=== PATIENT | female | born 1975 | race American Indian/Alaskan Native ===

== ENCOUNTER → 2017-04-30 | Outpatient (CLI) | payer BC ==
--- NOTE | 2017-05-01 08:11 | MAMMOGRAPHY REPORT ---
SCREENING ULTRASOUND OF BOTH BREASTS: 04/30/2017 CLINICAL HISTORY: 42-year-old woman presents for breast screening. She is declining mammography as a rticles she has read reportedly raised a concern of mammograms causing breast cancer. Therefore she presents for whole breast screening ultrasound. COMPARISON: No prior exams were available for comparison. FINDINGS: Real-time high-resolution sonographic evaluation was performed throughout each breast incl uding the axillae. Morphologically normal lymph nodes are identified in the right and left axilla, without evidence of suspicious lymphadenopathy. The breast parenchymal echotexture is heterogeneousdense. In the left 3:00 axis, 5 cm from the nipp le, there is a lobulated parallel circumscribed hypoechoic benign-appearing solid mass versus promine nt fat lobule measuring 5.4 x 3.0 x 7.8 mm. In the 5:00 left breast, 3 cm from the nipple, another l obulated hypoechoic solid versus cystic mass is identified, measuring 4.6 x 2.7 x 3.9 mm. A round an echoic benign simple cyst with posterior acoustic enhancement is identified in the left 7:00 breast, 2 cm from the nipple, measuring 3.1 x 2.3 x 2.9 mm. A parallel anechoic benign simple cyst identifie d in the 6:30 left breast, 2 cm from the nipple measures 3.4 x 1.8 x 5.2 mm. A grouping of probable cysts are identified in the 11:00 left breast, 4 cm from the nipple, measuring approximately 11 mm in conglomerate. No highly suspicious solid mass is identified in the left breast, including the retro areolar breast. In the right breast 12:00 axis, 1 cm from the nipple, there is an oval parallel circumscribed anechoi c benign simple cyst measuring 5.1 x 5.7 x 2.0 mm. A lobulated hypoechoic solid versus cystic mass i n the 3:00 right breast, 2 cm from the nipple, measures 5.2 x 3.5 x 3.0 mm. Hypoechoic nodular tissu e is seen in the 4:00 right breast, 9 cm from the nipple, measuring approximately 15 mm in conglomera te, which could simply represent stromal fibrosis or normal tissue. A tiny round hypoechoic cystic-a ppearing mass in the 5:00 right breast, 4 cm from the nipple, measures 2.0 x 2.1 x 2.3 mm. An isoech oic mass versus prominent fat lobule is seen in the 7:00 right breast, 5 cm from the nipple, measurin g 9.2 x 3.9 x 7.2 mm. A parallel isoechoic solid-appearing mass in the 9:00 right breast, 7 cm from the nipple, measures 5.1 x 2.3 x 5.1 mm. No highly suspicious solid mass is seen throughout the righ t breast including the retroareolar breast. All of the above described masses in both breasts most likely represent benign fibrocystic changes an d benign masses such as fibroadenomas. However, given the indeterminate solid versus cystic nature o f some of the benign appearing masses, a short interval follow-up targeted bilateral breast ultrasoun d is recommend to ensure stability in 6 months. IMPRESSION: ACR-BI-RADS CATEGORY 3: PROBABLY BENIGN - FOLLOW-UP RECOMMENDED 1. There are fibrocystic changes in both breasts on ultrasound, with several anechoic benign simple cysts identified. 2. However, there are indeterminate solid versus cystic benign-appearing masses v ersus prominent fat lobules also seen in both breasts for which a short interval follow-up bilateral targeted ultrasound is recommended to ensure stability in 6 months. In particular, attention to the right breast 3:00, 4:00, 5:00, 7:00 and 9:00 axes, and left breast 3:00, 5:00 and 11:00 axes. 3. I also discussed with the patient that mammography is the only proven modality for reducing breas t cancer mortality and this is the gold standard for screening breast evaluation. Ultrasound may not demonstrate microcalcifications, which are well seen mammographically, and can be the earliest sign of atypia or breast cancer. Articles that I am aware of have not demonstrated screening mammography to cause breast cancer. I would urge her to consider screening mammography in the future, but if she still declines that exam whole breast screening ultrasounds seem reasonable although suboptimal. Liliya Chacko M.D. ay/:04/30/2017 13:35:16 Museum Registrar: Nirmala MARTINEZ)(Angel), [facility] letter sent: Follow Up Recommended 3 BI-RADS Code: ACR-BI-RADS Category 3: Probably Benign
--- NOTE | 2017-05-06 13:38 | CODING QUERY NO DIAGNOSIS ---
: 1975 TREATMENT RENDERED WITHOUT A DIAGNOSIS To promote full compliance with coding requirements relating to patient care, physician participation is requested in all cases of medical insurance coder uncertainty. Please assist us with providing a diagnosis/symptom for the test(s) below: A diagnosis/symptom was not documented on your Order. A valid diagnosis/symptom is required to bill all insurances. Please remember that we are unable to code a diagnosis of rule out, probable, possible, questionable, or suspected. Tests that require a diagnosis: DOS: 04/30/17 * Breast Ultrasound DIAGNOSIS: Provider Signature: Date: Thank you Elena Gonzalez [employer] Information Management Once completed, please kindly fax back to [phone] For questions please call [phone]
== END | disposition home or self-care (01) ==
LOC: C.MAMM 08:56
PROVIDERS: ATTEND Internal Medicine
DX: Z12.39 Encounter for other screening for malignant neoplasm of breast (principal); N60.11 Diffuse cystic mastopathy of right breast; N60.12 Diffuse cystic mastopathy of left breast

== ENCOUNTER → 2017-11-04 | Outpatient (CLI) | payer BC, OTHER ==
--- NOTE | 2017-11-05 13:01 | MAMMOGRAPHY REPORT ---
ULTRASOUND OF BOTH BREASTS: 11/04/2017 CLINICAL HISTORY: 41-year-old woman declining mammography screening presents for follow-up targeted u ltrasound in both breasts for probably benign findings identified on prior whole breast ultrasound. COMPARISON: Comparison is made to exam dated: 04/30/2017 ultrasound - [facility]. FINDINGS: Targeted ultrasound was performed in each breast. In the 3:00 left breast, 5 cm from the n ipple, there is a partially circumscribed hypoechoic gently lobulated solid-appearing mass measuring 8.5 x 2.7 x 4.6 mm, previously measured 7.8 x 3.0 x 5.4 mm. In the 5:00 left breast, 3 cm from the n ipple, another multilobulated and circumscribed hypoechoic solid versus cystic mass with posterior ac oustic enhancement is identified measuring 3.9 x 4.0 x 3.8 mm, previously measured 4.6 x 2.7 x 3.9 mm . There is a grouping of anechoic benign cysts in the 4:00 left breast, 4 cm from the nipple, measur ing approximately 1.3 cm in conglomerate. This finding is benign and more clearly cystic comparing t o the prior ultrasound. In the right 3:00 breast, 2 cm from the nipple, a lesion is no longer identified. In the 4:00 right breast, 9 cm from the nipple there is slight textural difference of the tissue which is slightly more hypoechoic compared to the adjacent breast tissue on ultrasound but likely represent stromal fibrosi s. This area measures 2.3 cm and is visually unchanged although measurements are slightly different. A small hypoechoic circumscribed oval mass in the 5:00 right breast, 4 cm from the nipple measures 2.5 x 2.0 x 2.4 mm, which appears more anechoic and cystic compared to the prior ultrasound. A paral lel hypoechoic circumscribed solid-appearing mass in the 7:00 left breast, 5 cm from the nipple measu res 7.5 x 3.4 x 5.9 mm, previously measured 9.2 x 3.9 x 7.2 mm. An oval parallel circumscribed hypoe choic solid-appearing mass in the 9:00 right breast, 7 cm from the nipple measures 4.7 x 2.2 x 5.5 mm , previously measured 5.1 x 2.2 5.1 mm. IMPRESSION: ACR-BI-RADS CATEGORY 3: PROBABLY BENIGN - FOLLOW-UP RECOMMENDED 1. A lesion is no longer identified in the right 3:00 breast, which confirms benignity, and there is a conglomerate of benign anechoic cysts in the 11:00 left breast. No further follow-up is needed re garding these benign findings. 2. There are stable benign-appearing solid versus cystic masses in the left breast at 3:00, 5:00 and the right breast at 4:00, 5:00, 7:00 and 9:00 that could represent complicated cysts or benign solid masses such as fibroadenomas. Another six-month follow-up targeted ultrasound is recommended for th wally lesions in both breasts. 3. At the time of follow-up would again recommend screening mammography, as this is the only modalit y proven to decrease breast cancer mortality. If the patient still declines mammography would then r ecommend a bilateral whole breast ultrasound for screening at that time (30 minutes). These results and recommendations were discussed with the patient at the time of the exam. Liliya Chacko M.D. ay/:11/04/2017 17:57:24 Doper Operator: Dr. Liliya Chacko, [facility] letter sent: Follow Up Recommended 3 BI-RADS Code: ACR-BI-RADS Category 3: Probably Benign
== END | disposition home or self-care (01) ==
LOC: C.MAMM 09:01
PROVIDERS: ATTEND Internal Medicine
DX: N60.12 Diffuse cystic mastopathy of left breast (principal); N63.21 Unspecified lump in the left breast, upper outer quadrant; N63.23 Unspecified lump in the left breast, lower outer quadrant; N63.13 Unspecified lump in the right breast, lower outer quadrant; N63.14 Unspecified lump in the right breast, lower inner quadrant; N64.59 Other signs and symptoms in breast